=== PATIENT | female | born 1960 | race Caucasian/White ===

== ENCOUNTER → 2025-08-14 10:12 | Outpatient (CLI) | payer OTHER, SELFPAY ==
--- NOTE | 2025-08-14 10:15 | DI.RAD.S_ITS ---
PROCEDURE: XR DEXA AXIAL SKELETON INDICATIONS: screening COMPARISON: None. FINDINGS: Lumbar Spine: Bone mineral density 0.751 g/cm2, T score -2.7. Left Femoral Neck: Bone mineral density 0.629 g/cm2, T score -2.0. Left Hip: Bone mineral density 0.793 g/cm2, T score -1.2. Fracture Risk Calculation (when applicable): not applicable (T score greater or equal to -1.0 to: NORMAL) (T score from -1.1 to -2.4: OSTEOPENIA) (T score less than or equal to -2.5: OSTEOPOROSIS) IMPRESSION: Osteoporosis Follow-up guidelines as follows: Osteoporosis: Consider a repeat DEXA and Vertebral Fracture Assessment (VFA) exam in 2 years or sooner if medically necessary, to reassess this patient's status. Osteopenia: Consider a repeat DEXA in 2-3 years to reassess this patient's status, or if there is a new clinical indication. Normal: Consider a repeat DEXA in 5 years or sooner, or if there is a new clinical indication. All treatment decisions require clinical judgment and consideration of individual patient factors, including patient preferences, comorbidities, previous drug use, risk factors not captured in the FRAX model (e.g., frailty, falls, vitamin D deficiency, increased bone turnover, interval significant decline in bone density ) and possible under- or over-estimation of fracture risk by FRAX. In addition, the [employer] Guide recommends that FDA-approved medical therapies be considered in postmenopausal women and men age >= 50 years with a: * Hip or vertebral (clinical or morphometric) fracture * T-score of <=-2.5 at the spine or hip * Ten-year fracture probability by FRAX of >= 3% for hip fracture or >=20% for major osteoporotic fracture. Dictated by: Rob Carrasquillo M.D. on 08/14/2025 at 20:38 Approved by: Rob Carrasquillo M.D. on 08/14/2025 at 20:39
== END ==
LOC: RAD 10:14
PROVIDERS: PCP Emergency Medicine; Referring Provider Emergency Medicine; Visit Provider Emergency Medicine
DX: M81.0 Age-related osteoporosis without current pathological fracture (principal); N95.8 Other specified menopausal and perimenopausal disorders; N95.1 Menopausal and female climacteric states; Z82.62 Family history of osteoporosis
CPT/HCPCS: 77080